=== PATIENT | male | born 1970 | race African-American/Black ===

== ENCOUNTER 2024-01-11 02:15 | Emergency (ER) | payer MEDICAID, OTHER ==
[~2024-01-11] VITALS: Ht 188 cm; Wt 79.5 kg
[2024-01-11 02:23] VITALS: PULSE 82
[2024-01-11 02:28] VITALS: BP 155/84; RESP 16; TEMP 97.5; O2SAT 100
== END 2024-01-11 07:57 | disposition home or self-care (01) ==
LOC: ER 02:15
DX: M54.50 Low back pain, unspecified (principal); Z53.21 Procedure and treatment not carried out due to patient leaving prior to being seen by health care provider
CPT/HCPCS: 99281